=== PATIENT | male | born 1970 | race Caucasian/White ===

== ENCOUNTER 2025-06-30 10:44 | Emergency (ER) | payer BC, SELFPAY ==
[2025-06-30 10:58] VITALS: BP 131/81; PULSE 68; RESP 18; TEMP 36.6; O2SAT 100
--- NOTE | 2025-06-30 11:08 | ED_ITS ---
HPI - URI/Sore Throat General Chief Complaint: Upper Respiratory Infection Stated Complaint: right ear/sinus Time Seen by Provider: 06/30/25 11:08 Source: patient, RN notes reviewed and old records reviewed Mode of arrival: ambulatory Limitations: no limitations History of Present Illness HPI Narrative: 55 year old male who presents to [facility] care with complaints of 2 week duration of right ear pain with decreased hearing, sinus congestion and drainage of thick mucous which has increased for the past 3 days and some headache pain. Patient reports that he has now started with harsh cough for the past 3 days also. Patient reports no known fevers, chills or sweats. Patient reports no known ill contacts. Patient reports that he has been taking sinus medications and he has used debrox to his ears. MD elicited complaint: cough and sore throat Onset (ago): week(s) (initial 2 weeks with increased past 3 days.) Consistency: progressively worsening Description of mucous: other (white thick) Able to tolerate fluids by mouth: Yes Treatments prior to arrival: other (sinus medications and also debrox to his right ear) Related Data Allergies Allergy/AdvReac Type Severity Reaction Status Date / Time No Known Allergies Allergy Verified 06/30/25 10:56 Review of Systems Review of Systems: CONSTITUTIONAL:reports malaise,no chills, sweats, or fever. EYES: Denies visual changes, redness, or discharge. ENT: Reports rhinorrhea, congestion, sinus pain, right otalgia and no sore throat. CARDIOVASCULAR: Denies chest pain, palpitations, or edema. RESPIRATORY: Reports hacking cough.? Denies dyspnea. GASTROINTESTINAL: Denies abdominal pain, nausea, vomiting, diarrhea SKIN: Denies rash or itching. MUSCULOSKELETAL: Denies myalgia. NEUROLOGIC:Reports headache. All systems reviewed & are unremarkable except as noted in HPI and below PMFSH Social History Social History (Updated 07/01/25 @ 09:23 by Anni Ferro NP) Smoking status: Unknown if ever smoked Alcohol intake: current Alcohol use details: social Substance use type: marijuana Living arrangements: with family Gender identity (if verbalized by the patient): Male Comments At time of signature, agree with nursing past medical, surgical, social and family history. There is no relevant family history pertinent to the presenting complaint Exam Narrative: GENERAL: Well-appearing, well-nourished, and in no acute distress. HEAD: Normocephalic EYES: PERRLA, conjunctivae clear ENT: Nares clear, turbinates edematous and erythematous, white thick discharge, sinus pressure, headache,. Mucous membranes moist. TM pearly chambers with dull light reflex bilaterally; no tragal tenderness some soft wax in bilateral ears. Oropharynx erythematous without lesions. Tonsils not enlarged and without exudate, no drooling, no hoarseness, no trismus, uvula midline. NECK: Supple. No lymphadenopathy CHEST: Clear to auscultation, breath sounds equal. No wheezing, rhonchi, rales, or stridor. No respiratory distress, speaks in full sentences.cough at times productive, SAO2 100% on room air HEART: Regular rate and rhythm. No murmur heard. SKIN: Warm, dry, no rash. NEURO: Alert and oriented x3. PSYCH: Normal mood and affect Course Course Emergency Course: Patient is aware of diagnosis, understands and agrees to treatment plan.? Anticipatory guidance given.? Patient agrees to follow-up as directed and is aware of reasons to seek care at the emergency department. Portions of this record may have been created with voice recognition software Level of Care: Express Care Visit Vital Signs Vital signs: Vital Signs Temperature 36.6 C 06/30/25 10:58 Pulse Rate 68 06/30/25 10:58 Respiratory Rate 18 06/30/25 10:58 Blood Pressure 131/81 06/30/25 10:58 Pulse Oximetry 100 06/30/25 10:58 Oxygen Delivery Room Air 06/30/25 10:58 Temperature 36.6 C 06/30/25 10:58 Pulse Rate 68 06/30/25 10:58 Respiratory Rate 18 06/30/25 10:58 Blood Pressure 131/81 06/30/25 10:58 Pulse Oximetry 100 06/30/25 10:58 Oxygen Delivery Room Air 06/30/25 10:58 Reviewed MDM - URI/Sore Throat MDM Narrative Medical decision making narrative: Differential diagnosis considered: Jimenez virus, strep pharyngitis, allergic rhinitis, upper respiratory tract infection, sinusitis, rhinosinusitis, nasop haryngitis. viral pharyngitis, otitis media, otitis externa, pneumonia, bronchitis, viral cough syndrome, viral syndrome, and influenza.? Exam findings show no acute concerns or changes; patient is non-toxic appearing and is in no distress.? Patient is appropriate for outpatient treatment and follow-up. Differential Diagnosis Differential diagnosis: Likely upper respiratory infection, otitis media, sinusitis, viral infection and other (acute cough, right otalgia) Medical Records Attestation: I reviewed the patient's medical records. Lab Data Attestation: I reviewed the patient's lab results. Lab results narrative: Influenza A&B negative, COVID antigen negative Labs: Lab Results 06/30/25 Range/Units 11:14 POC Influenza A Ag Negative (Negative) POC Influenza B Ag Negative (Negative) POC SARS CoV-2 Ag Negative (Negative) reviewed Critical Care Time Critical Care Time Critical Care Time: No Discharge Plan Discharge Clinical Impression: Acute cough Sinusitis Qualifiers: Sinusitis location: pansinusitis Chronicity: acute Recurrence: not specified as recurrent Qualified Code(s): J01.40 - Acute pansinusitis, unspecified Patient Disposition: Home Condition: Stable Instructions: Antibiotic Form, Sinusitis (ED), Acute Cough (ED) Additional Instructions: Increase fluids especially juices and water [id number] cough and cold medicine of your choice for your symptoms recommend Mucinex Prescription cough medicine as directed--caution drowsiness and no driving or alcohol Steroids as directed--take with food heat to the face 20-30 minutes 4-6 times a day for pain Salt water gargles, throat lozenges or throat sprays as desired Antibiotic as directed--finished the medication If your symptoms persist, change or worsen significantly before you can contact your personal physician then please, without delay, go to the emergency department for further evaluation. Follow-up with PCP in 7-10 days or sooner if needed Follow up with PCP soon in regards to your blood pressure which is elevated above threshold for referral. Blood pressure above 120/80 may indicate pre- hypertension. 131/81 use Debrox 10 drops to bilateral ears once weekly Patient Language: Yoruba Prescriptions: New amoxicillin-pot clavulanate 875-125 mg tablet 1 tablet PO Q12H Qty: 20 0RF Rx Instructions: take all of medication prednisone 20 mg tablet 40 mg PO DAILY Qty: 10 0RF codeine-guaifenesin 10-100 mg/5 mL liquid 10 ml PO Q4-6H PRN (Reason: cough) Qty: 120 0RF Follow-up/Referrals: PHYSICIAN,PHOTOGRAPHIC SPECIALIST [Primary Care Provider, Internal Medicine] Time of Disposition: 11:32 Quality Rafiq Coma Scale Eyes: Open Verbal: Oriented and Alert Motor: Follows Commands Rafiq Coma Total Score: 15
[2025-06-30 11:15] LABS: EDCOVIDSCREEN Negative (Negative); EDINFLUASCREEN Negative (Negative); EDINFLUBSCREEN Negative (Negative)
--- OUTSIDE RECORDS SUMMARY | 2025-06-30 11:29 | XMS_ITS | Clinical Summary ---
Author Organization [facility] Address [address] [place] [address] Phone Care Team Providers Care Exercise Planner Name Role Phone Provider, None Primary Care Provider Unavailabl e Allergies Active Allergy Reactions Criticality Noted Date Comments Hydromorphone Hcl Hives 01/02/2019 Medications naproxen (NAPROSYN) 500 MG Tablet Take 1 Tab by mouth 2 times daily as needed for Moderate or more severe pain. 20 Tab 01/02/2019 Active traMADol (ULTRAM) 50 MG Tablet Take 1 Tab by mouth every 6 hours as needed for Moderate or more severe pain. 12 Tab 03/20/2020 Active naproxen (NAPROSYN) 500 MG Tablet Take 1 Tablet by mouth 2 times daily as needed for Moderate or more severe pain. 20 Tablet 05/01/2024 Active ibuprofen (MOTRIN) 200 MG Tablet Take 3 Tablets by mouth every 6 hours as needed for Fever for up to 20 doses. 11/15/2024 Active HYDROcodone-froylan taminophen (NORCO) 5-325 MG TabletIndicatio ns:Closed fracture of multiple ribs of right side, initial encounter Take 1 Tablet by mouth every 4 hours as needed for Moderate or more severe pain for up to 12 doses. 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 Sex and Gender Information Value Date Recorded Sex Assigned at Not on file Legal Sex Male 11:13 PM CDT Gender Identity Not on file Sexual Orientation Not on file Last Filed Vital Signs Vital Sign Reading Time Taken Comments Blood Pressure 130/75 11/15/2024 9:30 PM PERFECT BINDER SETTER Pulse 88 11/15/2024 3:54 PM PERFECT BINDER SETTER Temperature 37.2 C (99 F) 11/15/2024 3:54 PM PERFECT BINDER SETTER Respiratory Rate 20 11/15/2024 3:54 PM PERFECT BINDER SETTER Oxygen Saturation 99% 11/15/2024 3:54 PM PERFECT BINDER SETTER Inhaled Oxygen Concentration - - Weight 76.2 kg (167 lb 15.9 oz) 11/15/2024 3:54 PM PERFECT BINDER SETTER Height 172.7 cm (5' 8) 11/15/2024 3:54 PM PERFECT BINDER SETTER Body Mass Index 25.54 11/15/2024 3:54 PM PERFECT BINDER SETTER Plan of Treatment Health Maintenance Due Date Last Done Comments Hepatitis C Virus (HCV) Screening 1969 Hepatitis B Immunization (1 of 3 - 19+ 3-dose series) 1988 Cologuard 2014 Colonoscopy 2014 Colorectal Cancer Screening 2014 Immunochemical Fecal Occult Blood 2014 Pneumococcal Immunization (5 0+ years) (1 of 1 - PCV) 2019 Zoster Immunization (1 of 2) 2019 PSA Discussion 2024 Influenza Immunization (#1) 2025 SARS-COV-2 Immunization ( - 2023- season) 2025 Td Immunization Every 10 Yea rs (Adults With 1 Tdap) 12/08/2025 12/09/2015 Respiratory Syncytial Virus (RSV) Immunization (Adult) (1 - 1-dose 75+ series) 2044 DTaP/Tdap/Td Immunization Discontinued 12/09/2015 Human Papillomavirus (HPV) Immunization Aged Out No longer eligible b ased on patient's age to complete this topic Meningococcal Immunization (ACWY) Aged Out No longer eligible based on patient's age to complete this topic Rotavirus Immunization Aged Out No lo nger eligible based on patient's age to complete this topic Insurance MEDICAID BL[place] Care Teams Exercise Planner Relationship Specialty Start Date End Date Provider, None [place] PCP - General 12/09/15
--- OUTSIDE RECORDS SUMMARY | 2025-06-30 11:29 | XMS_ITS | Clinical Summary ---
Author Organization [address] Address [address] [place] [id number] Care Team Providers Care Belt Loop Machine Operator Name Role Phone No, Physician Primary Care Provider [phone] Allergies Active Allergy Reactions Criticality Noted Date Comments Hydromorphone Hcl Hives Medium 01/02/2019 Medications naproxen (ANAPROX,ALEVE) 220 mg tablet Take by mouth 2 (two) times a day with meals Active mupirocin (BACTROBAN) 2 % ointmentIndicat ions:Infected insect bites of multiple sites Apply topically 3 (three) times a day 22 g Active Additional Information Patient not taking.Reported on 02/07/2022 Active Problems No known active problems Immunizations Immunization Administration Dates Next Due Tdap 12/09/2015 Surgical History Surgery Date Site/Laterality Comments OTHER SURGICAL HISTORY No pertinent surgical hx Medical History Medical History Date Comments No pertinent past medical history Family History Medical History Relation Name Comments Arthritis Father Hearing loss Father Lung cancer Father COPD Mother Seizures Mother Relation Name Status Comments Father Mother Social History Tobacco Use Types Packs/Day Years Used Date Smoking Tobacco: Never Smokeless Tobacco: Never Alcohol Use Standard Drinks/Week Comments Not Currently 0 (1 standard drink = 0.6 oz pur e alcohol) Personal Safety Answer Date Recorded Getting School Help Needed Not on file 12/13 Sex and Gender Information Value Date Recorded Sex Assigned at Not on file 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 Gender Identity Not on file Sexual Orientation Not on file Obstetrics History Last Filed Vital Signs Vital Sign Reading Time Taken Comments Blood Pressure 128/70 02/07/2022 10:55 AM CDT Pulse 68 02/07/2022 10:55 AM CDT Temperature 36.5 C (97.7 F) 02/07/2022 10:55 AM CDT Respiratory Rate 18 02/07/2022 10:55 AM CDT Oxygen Saturation 97% 02/07/2022 10:55 AM CDT Inhaled Oxygen Concentration - - Weight 72.6 kg (160 lb) 02/07/2022 10:55 AM CDT Height 172.7 cm (5' 8) 02/07/2022 10:55 AM CDT Body Mass Index 24.33 02/07/2022 10:55 AM CDT Plan of Treatment Not on file Care Teams Belt Loop Machine Operator Relationship Specialty Start Date End Date No, Physician PCP - General 08/08/18
--- OUTSIDE RECORDS SUMMARY | 2025-06-30 11:35 | XMS_ITS | Clinical Summary ---
Author Organization [facility] Address [address] [place] [id number] Care Team Providers Care Veterinary Radiologist Name Role Phone Unavailable Primary Care Provider Unavailabl e Social History Tobacco Use Types Packs/Day Years Used Date Smoking Tobacco: Never Assessed Sex and Gender Information Value Date Recorded Sex Assigned at Not on file Legal Sex Male 7:40 PM CDT Gender Identity Not on file Sexual Orientation Not on file Plan of Treatment Health Maintenance Due Date Last Done Comments Colorectal Cancer Screening Colonoscopy (10 Years) 1969 Annual Physical 1972 Hepatitis C 1987 DTaP, Tdap and Td Vaccines ( 1 - Tdap) 1988 Hepatitis B Vaccines (1 of 3 - 19+ 3-dose series) 1988 Pneumococcal Vaccine: 50+ Ye ars (1 of 1 - PCV) 2019 Zoster Vaccines (1 of 2) 2019 COVID-19 Vaccine (2023-2 5 season) 2025 Meningococcal B Vaccine Aged Out No l onger eligible based on patient's age to complete this topic Meningococcal Vaccine Aged Out No montrell mauricio eligible based on patient's age to complete this topic RSV Immunizations Under 20 Months Aged Out No longer eligible based on patient's age to complete this topic
== END 2025-06-30 11:42 | disposition home or self-care (01) ==
PROVIDERS: Emergency Provider Registered Nurse
DX: R05.1 Acute cough (principal); J01.40 Acute pansinusitis, unspecified; Z20.822 Contact with and (suspected) exposure to COVID-19; F12.90 Cannabis use, unspecified, uncomplicated
CPT/HCPCS: 87426; 87804; 99203; G0463